=== PATIENT | male | born 1995 | race Two or more races ===

== ENCOUNTER 2016-12-17 10:32 | Emergency (ER) | payer OTHER ==
[~2016-12-17] VITALS: Ht 170.2 cm; Wt 67.1 kg
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
[2016-12-17 12:28] VITALS: BP 120/78
--- NOTE | 2016-12-17 12:28 | NUR ---
Patient discharged to home in stable condition. Written and verbal after care instructions given. Patient verbalizes understanding of instruction.
== END 2016-12-17 12:29 | disposition home or self-care (01) ==
LOC: ER 10:35
DX: S02.2XXA Fracture of nasal bones, initial encounter for closed fracture (principal); F10.20 Alcohol dependence, uncomplicated; S09.90XA Unspecified injury of head, initial encounter; Y92.480 Sidewalk as the place of occurrence of the external cause; W01.0XXA Fall on same level from slipping, tripping and stumbling without subsequent striking against object, initial encounter; Y93.89 Activity, other specified; Y99.8 Other external cause status
CPT/HCPCS: 70450; 70486; 72125; 99284; A4606; Z7610